=== PATIENT | female | born 1975 | race Caucasian/White ===

== ENCOUNTER 2018-03-06 08:12 | Day surgery (SDC) | payer OTHER ==
[2018-03-04 11:41] LABS: Absolute Lymphocytes (CBC) 2.2 K/uL (0.7-4.9); Absolute Monocytes 0.6 K/uL (0.1-1.3); Absolute Neutrophil 7.7 K/uL (1.8-8.0); Basophils % 0.5 % (0-1.3); Eosinophils % 0.4 % (0-4.4); Hematocrit 41.6 % (36.0-45.0); Lymphocytes % 20.5 % (15.3-44.8); MCH 32.9 pg (27.0-35.0); MCV 96.8 fL (80-100); MPV 7.9 fL (7.6-11.3); Monocytes % 6.1 % (3.3-12.3); RBC Red Blood Cell Count 4.29 M/uL (3.86-4.86)
[2018-03-04 11:44] LABS: Urine Appearance CLEAR; Urine Bilirubin NEGATIVE (NEG); Urine Blood NEGATIVE (NEG); Urine Color YELLOW; Urine Glucose NEGATIVE (NEG); Urine Protein NEGATIVE (NEG); Urine Urobilinogen 0.2 mg/dL (0.2-1.0); Urine pH 5.5 (5.0-7.0)
[2018-03-04 11:48] LABS: Urine Microscopic Reflex NO UMIC
[2018-03-06] MEDS ORDERED: Ringers Lactate 1,000 ML IV ONE ×2 (08:32→11:27)
[2018-03-06] MEDS ORDERED: SCOPOLAMINE HYDROBROMIDE PATCH TD ONE (08:32)
[2018-03-06] MEDS ORDERED: ROCURONIUM 50 MG/5 ML VIAL IV ONE (10:11)
[2018-03-06] MEDS ORDERED: FENTANYL CITR 250 MCG/5 ML ONE (10:11)
[2018-03-06] MEDS ORDERED: PROPOFOL 200 MG/20 ML VIAL IV ONE (10:11)
[2018-03-06] MEDS ORDERED: MIDAZOLAM HCL 2 MG/2 ML INJ ONE (10:11)
[2018-03-06] MEDS ORDERED: LIDOCAINE 1% MPF 5 ML VIAL ONE (10:11)
[2018-03-06] MEDS ORDERED: ONDANSETRON HCL 40 MG/20 ML VIAL ONE (10:11)
[2018-03-06] MEDS ORDERED: NA CHLORIDE 0.9% 1,000 ML ONE (10:17)
[2018-03-06] MEDS ORDERED: SILVER NITRATE 1 APPL TOP ONE (10:17)
[2018-03-06] MEDS ORDERED: LIDOCAINE 1% W/EPI 1:100,000 MDV 50 ML VIAL ONE (10:17)
[2018-03-06] MEDS ORDERED: CEFAZOLIN/SWI 1gm 1 GM/10 ML SYR ONE (10:50)
[2018-03-06] MEDS ORDERED: EPHEDRINE SULF 50 MG/10 ML SYR ONE (10:52)
[2018-03-06] MEDS ORDERED: KETOROLAC 30 MG/ML INJ ONE (12:43)
[2018-03-06] MEDS: MEPERIDINE HCL 50 MG/ML AMP ONE ×3 (13:28→14:06)
--- NOTE | 2018-03-07 00:25 | OP ---
Date of Procedure: 03/06/2018 Surgeon: Kim Hernandez MD Special Education Curriculum Specialist: Gildardo. Preoperative Diagnoses: Menorrhagia, dysmenorrhea, deep dyspareunia, pelvic pain. Postoperative Diagnoses: Menorrhagia, dysmenorrhea, deep dyspareunia, pelvic pain, and extensive end ometriosis. Procedures Performed: 1.Hysteroscopy, ablation with NovaSure. 2.Laparoscopy extensive endometriosis excision. 3.Bilateral salpingectomy and left ovarian cystectomy. 4.Left ureterolysis and cystoscopy. Anesthesia: General endotracheal. Specimens: Endometriosis from anterior cul-de-sac, anterior right and left broad ligaments, right an d left lateral collado, and left periureteric endo and right uterosacral ligament endo, bilateral tubes and left ovarian cyst. Findings: The ablation settings were 4.5 cm for cavity length, 2.9 cm for cavity width, the power se t at 72 dang, time of 87 seconds for the ablation cycle. There was an excellent ablation effect thr oughout the entire cavity. There was extensive endometriosis on the anterior bladder peritoneum, anterior cul-de-sac, anterior b road ligament on the right side. All these were isolated implants, pale, light colored, but in group s. On the left anterior broad ligament, there was a large implant of endometriosis with dark endomet riotic tissue. Posterior cul-de-sac had mild amount of endometriosis that also scarred the bowel and the cul-de-sac. However, most of the endometriosis was on the lateral aspect of the left uterosacra l ligament going all the way to the uterosacral ligament, encasing the ureter in the distal 3 cm. Th e pelvic part of the ureter had other periureteric implants of endometriosis on the left side as well as the right side. However, the ureterolysis was done on the left side in order to free the ureter at the level of the ureteric tunnel. All the endometriosis in between the tube and the left ovary was removed along with the tube, and the left ovarian cyst was removed just for the purpose of getting better visualization in the posterior broad ligament and the lateral wall. At the time of endometriosis excision, this was a benign cyst. Cystoscopy was performed at the end, and both ureters were patent. No evidence of any injury to the bladder. Rest of cysto was negative. Description Of Procedure: After informed consent was verified, the patient was taken back to OR, a g nikky of Ancef was given. She was placed in a dorsal lithotomy position. Pelvic exam performed. Abdo men, vulva, vagina, and perineum were prepped and draped in a sterile fashion. Villalta was placed to d rain the bladder. Then, cervix was exposed with a bivalve speculum. Anterior lip grasped with 2 All is clamps. Cervix dilated to 14-Honduran. Diagnostic hysteroscopy with normal saline and 30-degree le ns was done. After measuring the cavity under direct visualization, sounding length 8 cm, cervical l ength 3.5 cm, cavity length was set at 4.5 cm on the NovaSure machine. Then, the cavity was empty. Scope was removed. NovaSure device was taken and deployed into the uterine cavity. Slight difficult y opening up the fan; however, once it did, the cavity width was 2.9 cm. Power set at 72 dang. Abl ation cycle was started after enabling the device and passing the cavity integrity test. Cycle was u ninterrupted. Then, the fan was deployed. NovaSure device removed. Then, hysteroscopy was performe d with normal saline. Thorough irrigation of the cavity was done to take out the ablated tissue. Th en, the diagnostic VCare was introduced. This area was then draped. A 1-cm infraumbilical incision was made with scalpel using the open laparoscopy technique. Fascia wa s incised, tagged. Peritoneal cavity entered bluntly. S retractors placed. Randi introduced. Ant erior upper abdominal cavity was visualized. 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 Pelvic exam with the camera showed a normal appendix, slight adhesions of the bowel was present to th e lateral wall as well as to the posterior cul-de-sac. The patient T-jolie. Three 5-mm ports were pl aced in the right lower quadrant, left lower quadrant, and the midline suprapubic area under direct v ision. Then, the course of the ureters were visualized from the pelvic brim to the ureteric tunnel. It was very evident on the right side. However, on the left side, the distal part was covered with the endometriosis. The ovary on the right side was attached to the posterior broad ligament because of an endometrial im plant over here that was lateral and superior to the ureter. Thus, for the endometriosis described, we started to take down the endometriosis on the anterior cul- de-sac first right on the bladder. The peritoneum was dissected up with a monopolar needle and it wa s excised. Three such implants were removed, and once the anterior bladder peritoneum was excised, t hen the anterior cul-de-sac was excised by opening of the peritoneum with a push-spread technique. T he endometriotic tissue was from the underlying tissues until normal tissues were seen here . The monopolar was used to remove the implants. Anterior broad ligament on the right side, similar dissection was performed opening the broad ligament, dissecting the implants out, and getting hemost asis with the monopolar needle. On the opposite side on the left anterior broad ligament, there was a dense implant. So, at this point, although the peritoneum was opened up with the help of scissors, then the peritoneal dissection was performed with the help of [place] as well as the LigaSure devic e with a [place] tip, and the entire implant was isolated all around by incising it sharply with the bipolar cautery. Then, the base was dissected away from the broad ligament and taken down, handed o co for pathology. The right posterior ovarian area was released with the help of scissors. There was an endometrial im plant here, and this was removed by excision with the help of scissors as well as the LigaSure for he mostasis. Once this was removed, then the ureter was identified in the mid level of the pelvis, and the peritoneum parallel to this was opened up. Then, the dissection was performed such that ureter w as dissected laterally, and the peritoneum with implants was left on the medial aspect. The vessels were divided with the help of a LigaSure and taken with the monopolar, and after this was stripped with 2 other areas of the lateral wall lateral to the uterosacral ligament that had implants , and these were all excised in total with the help of a monopolar tip, and there was an implant at t he base of the right uterosacral ligament, and this was removed with the help of the LigaSure by diss ecting it underneath until the tissues appeared to be normal. On the left side, attention was direct ed to the posterior cul-de-sac. Before this, I had to remove the ovarian cyst that was occluding the vision, so this was taken down with the help of the LigaSure and cauterized at the base with the Lig aSure as well as appeared to be a corpus luteal cyst without any remarkable changes and was consisten t with endometriosis or neoplasm. The left lateral wall bowel adhesions had to be taken down sharply with dissection with scissors. On ce these were taken down, then the ureter was identified since the distal part of the ureter was comp letely not visualized, and the ureteric peristalsis was very difficult to consider due to the endomet riotic implants all around. Started to make an incision lateral and superior to the implants away fr om the ureter, and once this was done, the lateral wall was opened up. Then, the implants were disse cted medially with the peritoneum, and the ureter was identified along with the internal iliac latera lly, and these were dissected the peritoneum. The implants were also as well, a nd then, these were dissected with the help of the LigaSure, first in the upper part and the lower __ cm had to do sharp dissection with some scissors, and then, dissection was performed until t he normal peritoneum was seen, and this was incised with scissors as well as the monopolar. Then, th e implant was excised completely from its attachment to the lateral wall with sharp dissection mostly and with LigaSure used just occasionally just to separate the areas that appeared to be vascular. O nce this was removed, there was unremarkable peristalsis of the ureter; however, since the distal par t was not seen, plan was made to do a cystoscopy to confirm the patency of the ureter and the non-obs tructed status. Once the implant was dissected on the medial aspect of the uterosacral ligament as well as space was created, the entire implant was removed from its attachment to the sacral with the monopolar needle, and then, the entire implant was removed with the help of the bipolar LigaSure. This implant was rem dada through one of the ports. Thorough irrigation and suction were performed with good hemostasis, and then, since all the implants were all removed, the cyst was also retrieved through the umbilical port. After copious irrigation and suction, then the case was ended. All the trocars wer e removed under direct vision. Gas desufflated. Fascia closed with a 0 Vicryl in [id number] fa shion. All skin incisions with interrupted 4-0 Monocryl. Then vaginally, Villalta and VCare were remov ed. Cystoscopy was performed with the help of a 17-Honduran sheath, 30-degree lens, and normal saline. There were excellent streams of urine from both ureteric orifices readily and no evidence of any tr auma to the bladder. Bladder was drained. The patient was recovered from the anesthesia. The instr ument, needle, and sponge counts x2 were correct at the end of the case. The patient tolerated the p rocedure well. More than 90% of her endometriosis has been removed. There was a small amount left i n the posterior cul-de-sac, did not feel like I wanted to disturb this. She did not do her bowel pre p as counseled strongly before and . We will follow clinically, and if need be, then the n ext option I would do is either am endometriosis excision or a hysterectomy, bilateral oophorectomy. ROSALES/TERRA Voice ID: [id number] Report ID: [id number]
== END 2018-03-06 15:05 | disposition home or self-care (01) ==
LOC: OR 08:12
PROVIDERS: ATTEND Obstetrics & Gynecology
PROC: 0TBB4ZZ Excision of Bladder, Percutaneous Endoscopic Approach (ICD-10-PCS; 2018-03-06)
PROC: 0UB44ZZ Excision of Uterine Supporting Structure, Percutaneous Endoscopic Approach (ICD-10-PCS; 2018-03-06)
PROC: 0UBF4ZZ Excision of Cul-de-sac, Percutaneous Endoscopic Approach (ICD-10-PCS; 2018-03-06)
PROC: 0DBW4ZZ Excision of Peritoneum, Percutaneous Endoscopic Approach (ICD-10-PCS; 2018-03-06)
PROC: 0U5B8ZZ Destruction of Endometrium, Via Natural or Artificial Opening Endoscopic (ICD-10-PCS; principal; 2018-03-06 12:00)
PROC: 0UT74ZZ Resection of Bilateral Fallopian Tubes, Percutaneous Endoscopic Approach (ICD-10-PCS; 2018-03-06 12:00)
PROC: 0UB14ZZ Excision of Left Ovary, Percutaneous Endoscopic Approach (ICD-10-PCS; 2018-03-06 12:00)
DX: N92.1 Excessive and frequent menstruation with irregular cycle (principal); R10.2 Pelvic and perineal pain; F41.8 Other specified anxiety disorders; N94.5 Secondary dysmenorrhea; N94.10 Unspecified dyspareunia; N80.3 Endometriosis of pelvic peritoneum; N83.8 Other noninflammatory disorders of ovary, fallopian tube and broad ligament; N83.12 Corpus luteum cyst of left ovary; Z88.2 Allergy status to sulfonamides; F17.200 Nicotine dependence, unspecified, uncomplicated
CPT/HCPCS: 36415; 81003; 81025; 85025; 88302; 88305; J0690; J2175; J2250; J2405; J7030